=== PATIENT | male | born 1995 | race African-American/Black ===

== ENCOUNTER 2016-07-16 06:02 | Emergency (ER) | payer OTHER ==
[2016-07-16 06:19] VITALS: TEMP 98.1; BMI 17.7
[2016-07-16] MEDS ORDERED: ALBUTEROL SO4 2.5/IPRATROPIUM 0.5 INH SOL 3 ML VIAL.NEB. NEB STA ×2 (06:25→06:27)
[2016-07-16] MEDS ORDERED: guaiFENesin/CODEINE 10 ML UNIT-DOSE CUPS PO ONE (06:26)
--- NOTE | 2016-07-16 06:27 | PDOC ---
History of Present Illness - General History Source: Patient <Camilo Castaneda - Last Filed: 07/16/16 07:01> - General History Source: Patient Exam Limitations: No Limitations - History of Present Illness Initial Comments: 07/16/16 07:04 The patient is a 21 year old male with no significant past medical history who presents to the ED with 3 days of cold-like symptoms. Patient reports he developed a dry cough over the past 3 days that exacerbated yesterday evening and last night, which prevented him from sleeping. Endorses chest burning upon coughing. He also has complaints of chest congestion, rhinorrhea, sore throat, subjective fever, and headache. Patient took santos seltzer with some improvement and advil yesterday morning with some improvement. The patient denies chills, diaphoresis, SOB, chest pain, and palpitations. The patient denies abdominal pain, nausea, vomiting, and diarrhea. Allergies: penicillin, amoxicillin Social History: No alcohol, tobacco, or drug use reported. Past Surgical History: None reported PCP: Dr. Eveline Beltre <Opal Nichols - Last Filed: 07/16/16 07:04> - General Chief Complaint: Shortness of Breath Stated Complaint: DIFFICULTY BREATHING/SWALLOWING Time Seen by Provider: 07/16/16 06:13 Past History - Psycho/Social/Smoking Cessation Hx Anxiety: No Suicidal Ideation: No Smoking Status: No Smoking History: Never smoked Have you smoked in the past 12 months: No Number of Cigarettes Smoked Daily: 0 Information on smoking cessation initiated: No Hx Alcohol Use: No Drug/Substance Use Hx: No Substance Use Type: None <TonyaCamilo - Last Filed: 07/16/16 07:01> <Opal Nichols - Last Filed: 07/16/16 07:04> - Past Medical History Allergies/Adverse Reactions: Allergies Allergy/AdvReac Type Severity Reaction Status Date / Time Penicillins Allergy Mild Swelling Verified 07/16/16 06:18 amoxicillin Allergy Verified 07/16/16 06:18 Home Medications: Ambulatory Orders No Home Medications 0 dose .ROUTE UTDICT 05/07/13 Ibuprofen [Motrin] 600 mg PO TID #30 tablet 07/16/16 Oseltamivir Phosphate [Tamiflu -] 75 mg PO BID #10 capsule 07/16/16 Pseudoephedrine HCl [Sudafed] 30 mg PO Q6H #30 tablet 07/16/16 Review of Systems - Review of Systems Able to Perform ROS?: Yes Comments:: 07/16/16 07:04 CONSTITUTIONAL: +subjective fever Absent: no chills, no fatigue EYES: Absent: visual changes ENT: +sore throat, rhinorrhea Absent: ear pain CARDIOVASCULAR: Absent: chest pain, no palpitations RESPIRATORY: +cough, chest congestion Absent: no SOB GI: Absent: abdominal pain, no nausea, no vomiting, no constipation, no diarrhea GENITOURINARY: Absent: dysuria, no frequency, no hematuria MUSKULOSKELETAL: Absent: back pain, no arthralgia, no myalgia SKIN: Absent: rash NEURO: +headache <Opal Nichols - Last Filed: 07/16/16 07:04> *Physical Exam - Vital Signs Last Vital Signs Temp Pulse Resp BP Pulse Ox 98.1 F 89 20 118/84 100 07/16/16 06:18 07/16/16 06:18 07/16/16 06:18 07/16/16 06:18 07/16/16 06:18 <Camilo Castaneda - Last Filed: 07/16/16 07:01> - Vital Signs Last Vital Signs Temp Pulse Resp BP Pulse Ox 98.1 F 89 20 118/84 100 07/16/16 06:18 07/16/16 06:18 07/16/16 06:18 07/16/16 06:18 07/16/16 06:18 - Physical Exam Comments: 07/16/16 07:04 GENERAL: Well-appearing, well-nourished. No apparent distress. HEENT: Normocephalic, atraumatic. PERRL, EOM intact. Maxillary sinus tenderness. Post nasal drip. Erythematous nasal turbinate bilaterally. Tender lymphadenopathy anterior cervical chain. Cobblestoning. CARDIOVASCULAR: Normal S1, S2. Regular rate and rhythm. PULMONARY: Clear to auscultation bilaterally. ABDOMEN: Soft, non-distended, non-tender. EXTREMITIES: Normal ROM in all four extremities. No gross deformities. SKIN: Warm, dry. No rash NEUROLOGICAL: No focal neurological deficits. <Opal Nichols - Last Filed: 07/16/16 07:04> ED Treatment Course - ADDITIONAL ORDERS Additional order review: 07/16/16 06:31 Influenza Types A,B Antigen (KANDIS) - Final Nasopharyngeal Swab - Final - Medications Given in the ED: ED Medications Discontinued Medications Generic Name Dose Route Start Last Admin Trade Name Vidya PRN Reason Stop Dose Admin Albuterol/Ipratropium 1 amp 07/16/16 06:25 07/16/16 06:58 Duoneb - NEB 07/16/16 06:26 1 amp ONCE STA Administration Albuterol/Ipratropium 1 amp 07/16/16 06:27 07/16/16 06:58 Duoneb - NEB 07/16/16 06:28 1 amp ONCE STA Administration Guaifenesin/Codeine Phosphate 10 ml 07/16/16 06:26 07/16/16 06:32 Robitussin Ac - PO 07/16/16 06:27 10 ml ONCE ONE Administration <Opal Nichols - Last Filed: 07/16/16 07:04> Medical Decision Making - Medical Decision Making 07/16/16 07:01 Dr. Castaneda: The scribe's documentation has been prepared under my direction and personally reviewed by me in its entirery. I confirm that the note above accurately reflects all work, treatment, procedures, and medical decision making performed by me. <Camilo Castaneda - Last Filed: 07/16/16 07:01> *DC/Admit/Observation/Transfer - Discharge Dispostion Admit: No <Camilo Castaneda - Last Filed: 07/16/16 07:01> - Attestations Scribe Attestion: 07/16/16 07:04 Documentation prepared by Opal Nichols, acting as medical support assistant for Camilo Castaneda MD <Opal Nichols - Last Filed: 07/16/16 07:04> Diagnosis at time of Disposition: Influenza A - Discharge Dispostion Disposition: HOME Condition at time of disposition: Stable - Prescriptions Prescriptions: Ibuprofen [Motrin] 600 mg PO TID #30 tablet Pseudoephedrine HCl [Sudafed] 30 mg PO Q6H #30 tablet Oseltamivir Phosphate [Tamiflu -] 75 mg PO BID #10 capsule - Referrals Referrals: Tirni Beltre [Primary Care Provider] - - Patient Instructions Printed Discharge Instructions: DI for Influenza -- Adult
[2016-07-16] MEDS ORDERED: guaiFENesin/CODEINE 5 ML UNIT-DOSE CUPS PO ONE (06:28)
[2016-07-16] MEDS ORDERED: PSEUDOEPHEDRINE HCL 30 MG TABLET PO STA (06:58)
[2016-07-16] MEDS ORDERED: OSELTAMIVIR PHOSPHATE 75 MG CAPSULE PO ONE (06:58)
[2016-07-16] MEDS ORDERED: OSELTAMIVIR PHOSPHATE 75 MG CAPSULE ONE (07:02)
[2016-07-16 08:27] VITALS: BP 122/64; PULSE 87
== END 2016-07-16 08:30 | disposition home or self-care (01) ==
LOC: JER 06:02
PROC: 3E0F7GC Introduction of Other Therapeutic Substance into Respiratory Tract, Via Natural or Artificial Opening (ICD-10-PCS; principal; 2016-07-16)
DX: J09.X2 Influenza due to identified novel influenza A virus with other respiratory manifestations (principal)
CPT/HCPCS: 71020-TC; 87804; 99282-25

== ENCOUNTER 2017-01-06 14:45 | Emergency (ER) | payer OTHER ==
[2017-01-06 14:50] VITALS: BP 122/68; PULSE 69; TEMP 98; BMI 18.7
--- NOTE | 2017-01-06 15:04 | PDOC ---
History of Present Illness - General Chief Complaint: Injury Stated Complaint: LT FOOT PAIN, SWOLLEN Time Seen by Provider: 01/06/17 15:02 History Source: Patient Exam Limitations: No Limitations - History of Present Illness Initial Comments: 01/06/17 15:04 Eversion injury while playing basketball last night, plaints of pain to the medial aspect of left midfoot. Is ambulatory but states has persistent pain. 01/06/17 15:20 Occurred: reports: yesterday Severity: reports: mild, moderate Pain Location: reports: lower extremity (left foot) Modifying Factors: improves with: cold therapy Loss of Consciousness: no loss of consciousness Associated Symptoms (Fall): denies symptoms Past History - Travel Traveled outside of the country in the last 30 days: No Close contact w/someone who was outside of country & ill: No - Past Medical History Allergies/Adverse Reactions: Allergies Allergy/AdvReac Type Severity Reaction Status Date / Time Penicillins Allergy Mild Swelling Verified 01/06/17 14:50 amoxicillin Allergy Verified 01/06/17 14:50 Home Medications: Ambulatory Orders NK [No Known Home Medication] 01/06/17 Other medical history: NONE - Psycho/Social/Smoking Cessation Hx Anxiety: No Suicidal Ideation: No Smoking Status: No Smoking History: Never smoked Have you smoked in the past 12 months: No Number of Cigarettes Smoked Daily: 0 Hx Alcohol Use: No Drug/Substance Use Hx: No Substance Use Type: None Review of Systems - Review of Systems Able to Perform ROS?: Yes Is the patient limited Gambian proficient: Yes Constitutional: Yes: See HPI. No: Symptoms Reported, Malaise HEENTM: No: Symptoms Reported Musculoskeletal: Yes: Symptoms Reported, See HPI, Muscle Pain, Joint Stiffness. No: Joint Swelling All Other Systems: Reviewed and Negative *Physical Exam - Vital Signs Last Vital Signs Temp Pulse Resp BP Pulse Ox 98.0 F 69 18 122/68 99 01/06/17 14:47 01/06/17 14:47 01/06/17 14:47 01/06/17 14:47 01/06/17 14:47 - Physical Exam General Appearance: Yes: Nourished, Appropriately Dressed, Apparent Distress HEENT: positive: ABDIEL, Normal ENT Inspection, TMs Normal, Pharynx Normal Neck: negative: Tender Musculoskeletal: positive: Normal Inspection Extremity: positive: Normal Range of Motion (normal range of motion but limited to severe flexion secondary to pain at instep. Patient has no swelling, no fifth metatarsal navicular, lateral or medial malleolus or tenderness. Negative squeeze test. Neurovascular To toes) Integumentary: positive: Normal Color, Dry, Warm Neurologic: positive: register of wills II-XII NML intact, Fully Oriented, Alert, Normal Mood/ Affect, Normal Response, Motor Strength / ED Treatment Course - RADIOLOGY Radiology Studies Ordered: Category Date Time Status ANKLE & FOOT-LEFT* [RAD] Stat Radiology 01/06/17 15:03 Ordered Progress Note - Progress Note Progress Note: X-rays negative for fractures or dislocations, will treat with Zaheer wrap and conservative measures. Will follow up with Orth O next week as needed *DC/Admit/Observation/Transfer Diagnosis at time of Disposition: Sprain of foot, left Qualifiers: Encounter type: initial encounter Qualified Code(s): S93.602A - Unspecified sprain of left foot, initial encounter - Discharge Dispostion Disposition: HOME Condition at time of disposition: Stable Admit: No - Patient Instructions Printed Discharge Instructions: DI for Foot Pain Additional Instructions: Rest, ice to area on and off for 15 minutes 4-6 times a day Avoid heavy lifting or exercise until pain and swelling is resolved or until further directed Keep area highly elevated to reduce swelling Use splints/Zaheer wrap as directed Followup with orthopedist in one to 2 days if not improving, if significantly improved may wait one week for followup with orthopedist May use ibuprofen 2-200 mg tablets every 6 hours as needed for pain - Post Discharge Activity Work/School Note: Back to Work
[2017-01-06] MEDS ORDERED: IBUPROFEN 600 MG TABLET (FP) PO ONE (15:18)
== END 2017-01-06 15:51 | disposition home or self-care (01) ==
LOC: JERFT 14:45
DX: S93.602A Unspecified sprain of left foot, initial encounter (principal); X58.XXXA Exposure to other specified factors, initial encounter; Y93.67 Activity, basketball; Y92.310 Basketball court as the place of occurrence of the external cause
CPT/HCPCS: 73610-TC-LT; 73630-TC-LT; 99281-25

== ENCOUNTER 2017-08-14 15:16 | Emergency (ER) | payer OTHER ==
[2017-08-14 15:22] VITALS: BP 125/71; PULSE 63; TEMP 98; BMI 19.2
[2017-08-14] MEDS ORDERED: IBUPROFEN 600 MG TABLET (FP) PO ONE ×2 (16:47→16:49)
--- NOTE | 2017-08-14 16:56 | PDOC ---
History of Present Illness - General Chief Complaint: Injury Stated Complaint: RIGTH ANKLE INJURY Time Seen by Provider: 08/14/17 16:30 History Source: Patient Exam Limitations: No Limitations - History of Present Illness Initial Comments: CHIEF COMPLAINT: 22 y/o male c/o right ankle pain since basketball injury yesterday. HISTORY OF PRESENT ILLNESS: Patient states he was playing basketball last night when he landed on an inverted right ankle. He states he is able to put pressure on it and walk but it is swollen and painful. He denies numbness/ tingling. He has not taken anything for pain. Vital signs on arrival are within normal limits REVIEW OF SYSTEMS: GENERAL/CONSTITUTIONAL: No fever/chills. No weakness. No weight change.. MUSCULOSKELETAL: +right ankle pain and swelling. No neck or back pain. SKIN: No rash or easy bruising. NEUROLOGIC: No headache, vertigo, loss of consciousness, or loss of sensation. PHYSICAL EXAM: VITAL_SIGNS: within normal limits GENERAL_APPEARANCE: alert, cooperative, no obvious discomfort. The patient can ambulate with slightly abnormal gait. MENTAL_STATUS: speech clear, oriented X 3, responds appropriately to questions. NEURO: motor intact and sensory intact in injured extremity. EXTREMITIES: 2+ dorsalis pedis pulse right foot. Swelling to lateral malleolus with TTP of both lateral and medial malleolus of right foot. No obvious deformities or crepitus. Full ROM of right ankle. SKIN: warm, dry, good color. Past History - Past Medical History Allergies/Adverse Reactions: Allergies Allergy/AdvReac Type Severity Reaction Status Date / Time Penicillins Allergy Mild Swelling Verified 08/14/17 15:22 amoxicillin Allergy Verified 08/14/17 15:22 Home Medications: Ambulatory Orders Ibuprofen 600 mg PO Q6H #20 tablet 08/14/17 COPD: No - Suicide/Smoking/Psychosocial Hx Smoking Status: No Smoking History: Never smoked Have you smoked in the past 12 months: No Number of Cigarettes Smoked Daily: 0 Hx Alcohol Use: No Drug/Substance Use Hx: No Substance Use Type: None *Physical Exam - Vital Signs Last Vital Signs Temp Pulse Resp BP Pulse Ox 98 F 63 18 125/71 99 08/14/17 15:19 08/14/17 15:19 08/14/17 15:19 08/14/17 15:19 03/24/18 15:19 Medical Decision Making - Medical Decision Making A/P: 22 y/o male with right ankle sprain. No need for imaging at this time. Will wrap with SAHIL bandage, send rx for ibuprofen and suggest RICE instructions. Patient given referral to orthopedic doctor. Suggested he call if symptoms do not resolve in 1-2 weeks. The patient verbalizes understanding of all instructions, has no further questions and is awaiting discharge. *DC/Admit/Observation/Transfer Diagnosis at time of Disposition: Ankle sprain Qualifiers: Encounter type: initial encounter Involved ligament of ankle: unspecified ligament Laterality: right Qualified Code(s): S93.401A - Sprain of unspecified ligament of right ankle, initial encounter - Discharge Dispostion Disposition: HOME Condition at time of disposition: Good - Referrals Referrals: Trini Beltre [Primary Care Provider] - Vinh Daly MD [Staff Physician] - - Patient Instructions Printed Discharge Instructions: DI for Ankle Sprain, How To Perform RICE (Rest , Ice, Compress, Elevate) Additional Instructions: Discharge Instructions: -You have an ankle sprain -Use SAHIL bandage for comfort -A prescription for ibuprofen has been sent to your pharmacy; please take as prescribed -Follow RICE instructions -FOllow up with Dr. Daly in 2 weeks if no improvement in symptoms -Return to the ER with any worsening or concerning symptoms - Post Discharge Activity
== END 2017-08-14 17:21 | disposition home or self-care (01) ==
LOC: JERFT 15:16
DX: S93.401A Sprain of unspecified ligament of right ankle, initial encounter (principal); X50.1XXA Overexertion from prolonged static or awkward postures, initial encounter; Y93.67 Activity, basketball; Y92.310 Basketball court as the place of occurrence of the external cause; Y99.8 Other external cause status
CPT/HCPCS: 99281-25

== ENCOUNTER 2017-08-20 14:03 | Emergency (ER) | payer OTHER ==
[2017-08-20 14:14] VITALS: BP 132/90; PULSE 66; TEMP 97.8; BMI 19.2
--- NOTE | 2017-08-20 14:15 | PDOC ---
Rapid Medical Evaluation Chief Complaint: Injury Time Seen by Provider: 08/20/17 14:12 Medical Evaluation: Allergies Allergy/AdvReac Type Severity Reaction Status Date / Time Penicillins Allergy Mild Swelling Verified 08/20/17 14:10 amoxicillin Allergy Verified 08/20/17 14:10 08/20/17 14:12 The patient presents with a chief complaint of: R ankle sprain about a week ago. Seen in our department, Did not follow up with ortho. Hurting again. No x- ray last time I have performed a brief in-person evaluation of this patient; Pertinent physical exam findings: ambulatory with cane, in no respiratory distress I have ordered the following: R ankle x-ray The patient will proceed to the ED for further evaluation. Discharge Disposition - Referrals Referrals: Trini Beltre [Primary Care Provider] - - Patient Instructions - Post Discharge Activity
--- NOTE | 2017-08-20 15:43 | PDOC ---
History of Present Illness - General Chief Complaint: Injury Stated Complaint: RT ANKLE SPRAIN Time Seen by Provider: 08/20/17 14:12 History Source: Patient Exam Limitations: No Limitations - History of Present Illness Initial Comments: 08/20/17 15:41 CHIEF COMPLAINT: Inversion injury right ankle HISTORY OF PRESENT ILLNESS: Patient is a 22-year-old male denies any medical history, currently on no medication, no allergies sustained inversion injury while playing basketball pain to right lateral ankle. Denies any other injury or complaint. Occurred: reports: just prior to arrival Severity: Yes: moderate Lower Extremity Pain Location: right: ankle Method of Injury: Yes: twisted Modifying Factors: improves with: None Lower Ext. Injury Location - Specific Injury Location Ankle: right pain Past History - Past Medical History Allergies/Adverse Reactions: Allergies Allergy/AdvReac Type Severity Reaction Status Date / Time Penicillins Allergy Mild Swelling Verified 08/20/17 14:14 amoxicillin Allergy Verified 08/20/17 14:14 Home Medications: Ambulatory Orders Ibuprofen [Motrin -] 600 mg PO QID #20 tablet 08/20/17 COPD: No - Suicide/Smoking/Psychosocial Hx Smoking Status: No Smoking History: Never smoked Have you smoked in the past 12 months: No Number of Cigarettes Smoked Daily: 0 Information on smoking cessation initiated: No Hx Alcohol Use: No Drug/Substance Use Hx: No Substance Use Type: None Review of Systems - Review of Systems Constitutional: No: Symptoms Reported Musculoskeletal: Yes: Joint Pain. No: Joint Swelling, Joint Stiffness Integumentary: No: Symptoms Reported, Bruising, Erythema Neurological: No: Symptoms reported Hematologic/Lymphatic: No: Symptoms Reported All Other Systems: Reviewed and Negative *Physical Exam - Vital Signs Last Vital Signs Temp Pulse Resp BP Pulse Ox 97.8 F 66 18 132/90 100 08/20/17 14:10 08/20/17 14:10 08/20/17 14:10 08/20/17 14:10 08/20/17 14:10 - Physical Exam General Appearance: Yes: Appropriately Dressed. No: Apparent Distress Neck: negative: Tender, Tender lateral, Tender midline Respiratory/Chest: positive: Lungs Clear, Normal Breath Sounds. negative: Respiratory Distress, Accessory Muscle Use Cardiovascular: positive: Regular Rhythm, Regular Rate Musculoskeletal: negative: Decreased Range of Motion Extremity: positive: Normal Capillary Refill, Normal Inspection, Normal Range of Motion (with associated pain). negative: Swelling, Calf Tenderness, Erythema , Inflammation Integumentary: positive: Normal Color, Dry, Swelling (right lateral ankle, minor ). negative: Erythema, Ecchymosis, Bruising Neurologic: positive: Alert, Normal Mood/Affect, Normal Response. negative: Motor Strength 5/5 Procedures - Splinting Splint Location: Right: Ankle Pre-Proc Neuro Vasc Exam: normal Pre-Made Type: aircast Zaheer Bandage: 3" Sling: No Complications: No Medical Decision Making - Medical Decision Making 08/20/17 15:44 A/P: Patient with right ankle injury vision injury. X-ray performed, no acute fracture dislocation. Zaheer wrap and Aircast placed on. Motrin as fever pain, follow-up with orthopedics in one week if pain persists. *DC/Admit/Observation/Transfer Diagnosis at time of Disposition: Ankle sprain Qualifiers: Encounter type: initial encounter Involved ligament of ankle: other ligament Laterality: right Qualified Code(s): S93.491A - Sprain of other ligament of right ankle, initial encounter - Discharge Dispostion Disposition: HOME Condition at time of disposition: Stable Admit: No - Prescriptions Prescriptions: Ibuprofen [Motrin -] 600 mg PO QID #20 tablet - Referrals Referrals: Trini Beltre [Primary Care Provider] - - Patient Instructions Printed Discharge Instructions: DI for Ankle Sprain Additional Instructions: 1. Please return to the emergency department with any redness, swelling, increased pain, or any other concerns. 2. Keep splint on. 3. Please follow up in the office of Dr. Daly within a week if pain persists. 4. No weightbearing 5. Ice and elevate when at rest. 6. Motrin for pain - Post Discharge Activity Forms/Work/School Notes: Back to Work
== END 2017-08-20 15:55 | disposition home or self-care (01) ==
LOC: JERFT 14:03
PROC: 2W3QX1Z Immobilization of Right Lower Leg using Splint (ICD-10-PCS; principal; 2017-08-20)
DX: S93.491A Sprain of other ligament of right ankle, initial encounter (principal); X50.1XXA Overexertion from prolonged static or awkward postures, initial encounter; Y93.67 Activity, basketball; Y92.310 Basketball court as the place of occurrence of the external cause; Y99.8 Other external cause status
CPT/HCPCS: 29515; 73610-TC-RT-FY; 73630-TC-RT-FY; 99281-25

== ENCOUNTER 2018-02-11 21:32 | Emergency (ER) | payer OTHER ==
[2018-02-11 21:36] VITALS: BP 136/68; PULSE 71; TEMP 98; BMI 18.7
--- NOTE | 2018-02-11 22:38 | PDOC ---
History of Present Illness - General Chief Complaint: Pain Stated Complaint: CHEST PAIN Time Seen by Provider: 02/11/18 22:15 History Source: Patient - History of Present Illness Initial Comments: 02/12/18 00:03 23-year-old male complaining of midsternal chest pain 2 hours after taking ginkgo biloba, biotin, serotonin. Patient reports that he has taken this medication in prior days but with no chest pain. She has a past medical history of anxiety reports that this chest pain feels "a lot like my anxiety "denies dizziness, diaphoresis, nausea, vomiting, abdominal pain, headache,urinary symptoms. reports drinking energy drinks denies drinking any energery drink today/. No past medical history 02/12/18 00:06 Past History - Past Medical History Allergies/Adverse Reactions: Allergies Allergy/AdvReac Type Severity Reaction Status Date / Time Penicillins Allergy Mild Swelling Verified 02/11/18 21:36 amoxicillin Allergy Verified 02/11/18 21:36 Home Medications: Ambulatory Orders Ibuprofen [Motrin -] 600 mg PO QID #20 tablet 08/20/17 COPD: No - Suicide/Smoking/Psychosocial Hx Smoking Status: No Smoking History: Never smoked Have you smoked in the past 12 months: No Number of Cigarettes Smoked Daily: 0 Hx Alcohol Use: No Drug/Substance Use Hx: No Substance Use Type: None Review of Systems - Review of Systems Able to Perform ROS?: Yes Is the patient limited Kazakh proficient: No Constitutional: No: Symptoms Reported, See HPI, Chills, Diaphoresis, Fever, Loss of Appetite, Malaise, Night Sweats, Weakness, Weight Stable, Unintentional Wgt. Loss, Unexplained wgt Loss, Other Cardiac (ROS): Yes: Chest Pain. No: Symptoms Reported, See HPI, Edema, Irregular Heart Rate, Lightheadedness, Palpitations, Syncope, Chest Tightness, Other *Physical Exam - Vital Signs Last Vital Signs Temp Pulse Resp BP Pulse Ox 98 F 71 18 136/68 97 02/11/18 21:33 02/11/18 21:33 02/11/18 21:33 02/11/18 21:33 02/11/18 21:33 - Physical Exam General Appearance: Yes: Appropriately Dressed Respiratory/Chest: positive: Lungs Clear, Normal Breath Sounds. negative: Chest Tender Cardiovascular: positive: Regular Rhythm, Regular Rate Gastrointestinal/Abdominal: positive: Normal Bowel Sounds, Soft. negative: Tender Musculoskeletal: positive: Normal Inspection Extremity: positive: Normal Capillary Refill, Normal Inspection, Normal Range of Motion Integumentary: positive: Normal Color, Dry, Warm Neurologic: positive: Fully Oriented, Alert, Normal Mood/Affect Heart Score/ECG Review - History History: Slightly suspicious - Electrocardiogram EKG: Normal - Age Age: </= 45 - ECG Intrepretation Rhythm: Regular Rhythm Comment:: 02/12/18 00:05 sinus rhythm with sinus arrythmia with occasional PVCs: 75 bpm ED Treatment Course - LABORATORY CBC & Chemistry Diagram: 02/11/18 21:50 02/11/18 21:50 Medical Decision Making - Medical Decision Making Chest Pain P: cbc cmp cardiac EKG *DC/Admit/Observation/Transfer Diagnosis at time of Disposition: Chest pain Qualifiers: Chest pain type: unspecified Qualified Code(s): R07.9 - Chest pain, unspecified - Discharge Dispostion Disposition: HOME - Referrals Referrals: Trini Beltre [Primary Care Provider] - Roderick Atwood MD [Staff Physician] - 2 Days - Patient Instructions Printed Discharge Instructions: DI for Chest Pain Additional Instructions: avoid caffeine follow up with your doctor. follow up with a paleologist and your primary care doctor. return to the ER if symptoms worsen. - Post Discharge Activity Forms/Work/School Notes: Back to Work
[2018-02-11 23:29] LABS: BASO % 0.3 % (0-2.0); EOS % 0.3 % (0-4.5); HEMATOCRIT 41.4 % (35.4-49); HEMOGLOBIN 13.5 GM/dL (11.7-16.9); MCH 25.2 pg (25.7-33.7); MCHC 32.6 g/dl (32.0-35.9); MEAN CELL VOLUME 77.3 fl (80-96); MEAN PLT VOLUME 9.3 fl (7.5-11.1); MONO % 4.7 % (3.8-10.2); NEUT % 80.7 % (42.8-82.8); PLATELET COUNT 193 K/MM3 (134-434); RBC 5.35 M/mm3 (4.00-5.60); RDW 14.4 % (11.9-15.9)
[2018-02-12] LABS: ALBUMIN 4.3 g/dl (3.4-5.0); ALK PHOS 75 U/L (45-117); ANION GAP 5 MMOL/L (8-16); BILIRUBIN,TOTAL 1.6 mg/dL (0.2-1); BLOOD UREA NITROGEN 10 mg/dL (7-18); CALCIUM 9.3 mg/dL (8.5-10.1); CHLORIDE 103 mmol/L (98-107); CO2 29 mmol/L (21-32); GLUCOSE,RANDOM 118 mg/dL (74-106); POTASSIUM 4.1 mmol/L (3.5-5.1); SGOT/AST 17 U/L (15-37); SGPT/ALT 18 U/L (13-61); SODIUM 137 mmol/L (136-145); TOT PROT 7.9 g/dl (6.4-8.2)
--- NOTE | 2018-02-12 15:34 | EKG ---
Test Reason : Blood Pressure : / mmHG Vent. Rate : 075 BPM Atrial Rate : 075 BPM P-R Int : 152 ms QRS Dur : 096 ms QT Int : 392 ms P-R-T Axes : 079 071 057 degrees QTc Int : 437 ms SINUS RHYTHM WITH SINUS ARRHYTHMIA WITH OCCASIONAL PREMATURE VENTRICULAR COMPLEXES OTHERWISE NORMAL ECG WHEN COMPARED WITH ECG OF 07-MAY-2013 21:59, PREMATURE VENTRICULAR COMPLEXES ARE NOW PRESENT NONSPECIFIC T WAVE ABNORMALITY NO LONGER EVIDENT IN ANTERIOR LEADS Confirmed by MD Jordin, Rocky ([id number]) on 02/12/2018 3:33:51 PM Referred By: Confirmed By:Rocky Brenner MD
== END 2018-02-12 00:30 | disposition home or self-care (01) ==
LOC: JERFT 21:32 → JER 21:32
DX: R07.9 Chest pain, unspecified (principal); F41.9 Anxiety disorder, unspecified; Z88.0 Allergy status to penicillin
CPT/HCPCS: 36415; 71046-TC-FY; 80053; 84443; 84484; 85025; 93005; 93010; 99281-25

== ENCOUNTER 2018-06-24 01:44 | Emergency (ER) | payer OTHER ==
[2018-06-24] MEDS ORDERED: ACETAMINOPHEN 325 MG TABLET (FP) PO ONE (02:13)
[2018-06-24] MEDS ORDERED: MAG HYDROX/AL HYDROX/SIMETH 30 ML UNIT-DOSE CUP PO ONE (02:13)
[2018-06-24] MEDS ORDERED: ACETAMINOPHEN 325 MG TABLET (FP) ONE (02:19)
[2018-06-24] MEDS ORDERED: MAG HYDROX/AL HYDROX/SIMETH 30 ML UNIT-DOSE CUP ONE (02:20)
--- NOTE | 2018-06-24 02:30 | PDOC ---
History of Present Illness - General Chief Complaint: Pain, Acute Stated Complaint: HEADACHE REACTION TO FOOD INTAKE Time Seen by Provider: 06/24/18 02:07 History Source: Patient Exam Limitations: Clinical Condition - History of Present Illness Initial Comments: 06/24/18 02:25 Patient with no signifcant PMhx present with complains of nausea, epigastric discomfort and SANCHEZ after eating crapcakes. Patient report he felt food stuck in the chest after eating it and started to get mild headache with nausea. Denies vomiting, dizziness, blurry vision, change in vision, diarrhea. Denies any other symptoms Timing/Duration: 1 hour Past History - Past Medical History Allergies/Adverse Reactions: Allergies Allergy/AdvReac Type Severity Reaction Status Date / Time Penicillins Allergy Mild Swelling Verified 02/11/18 21:36 amoxicillin Allergy Verified 02/11/18 21:36 Home Medications: Ambulatory Orders Ibuprofen [Motrin -] 600 mg PO QID #20 tablet 08/20/17 Mag Hydrox/Aluminum Hyd/Simeth [Maalox Advanced Suspension] 30 ml PO Q8H PRN # 200 oral.susp 06/24/18 COPD: No - Suicide/Smoking/Psychosocial Hx Smoking Status: No Smoking History: Never smoked Have you smoked in the past 12 months: No Number of Cigarettes Smoked Daily: 0 Hx Alcohol Use: No Drug/Substance Use Hx: No Substance Use Type: None Review of Systems - Review of Systems Able to Perform ROS?: Yes Is the patient limited Maltese proficient: No Constitutional: No: Malaise HEENTM: No: Blurred Vision, Recent change in vision, Throat Pain, Throat Swelling, Difficulty Swallowing, Mouth Swelling Respiratory: No: Shortness of Breath, SOB with Exertion, SOB at Rest, Wheezing Cardiac (ROS): No: Symptoms Reported, See HPI, Chest Pain, Edema, Irregular Heart Rate, Lightheadedness, Palpitations, Syncope, Chest Tightness, Other ABD/GI: Yes: See HPI, Nausea, Abdominal cramping ( mild epigastric). No: Vomiting All Other Systems: Reviewed and Negative *Physical Exam - Physical Exam General Appearance: Yes: Nourished, Appropriately Dressed. No: Apparent Distress HEENT: positive: EOMI, ABDIEL, Normal ENT Inspection, Normal Voice, TMs Normal, Pharynx Normal Neck: positive: Supple Respiratory/Chest: negative: Chest Tender, Lungs Clear, Respiratory Distress, Accessory Muscle Use Cardiovascular: positive: Regular Rhythm, Regular Rate Gastrointestinal/Abdominal: positive: Normal Bowel Sounds, Flat, Soft. negative : Tender, Organomegaly, Pulsatile Mass Musculoskeletal: positive: Normal Inspection Extremity: positive: Normal Capillary Refill, Normal Inspection Integumentary: positive: Normal Color Neurologic: positive: Fully Oriented, Alert, Normal Mood/Affect, Normal Response ED Treatment Course - Medications Given in the ED: ED Medications Discontinued Medications Generic Name Dose Route Start Last Admin Trade Name Vidya PRN Reason Stop Dose Admin Acetaminophen 650 mg 06/24/18 02:13 06/24/18 02:20 Tylenol - PO 06/24/18 02:14 650 mg ONCE ONE Administration Al Hydroxide/Mg Hydroxide 30 ml 06/24/18 02:13 06/24/18 02:21 Mylanta Oral Suspension - PO 06/24/18 02:14 30 ml ONCE ONE Administration Medical Decision Making - Medical Decision Making 06/24/18 02:28 06/24/18 02:25 Patient with no signifcant PMhx present with complains of nausea, epigastric discomfort and SANCHEZ after eating crapcakes. Patient report he felt food stuck in the chest after eating it and started to get mild headache with nausea. Exam unremarkable with no abdominal tenderness on exam. Patient in no acute distress. symptoms likely caused by dyspepsia. Patient given Maalox 30ml PO, tylenol 650mg PO for SANCHEZ and dyspepsia. reassess after 20mins 06/24/18 03:13 Patient report feeling better and stable for discharge *DC/Admit/Observation/Transfer Diagnosis at time of Disposition: Dyspepsia - Discharge Dispostion Disposition: HOME Condition at time of disposition: Stable Decision to Admit order: No - Prescriptions Prescriptions: Mag Hydrox/Aluminum Hyd/Simeth [Maalox Advanced Suspension] 30 ml PO Q8H PRN # 200 oral.susp PRN Reason: abdominal discomfort - Referrals Referrals: ON STAFF,NOT [Primary Care Provider] - Devonte Leon MD [Staff Physician] - - Patient Instructions Printed Discharge Instructions: DI for Dyspepsia Additional Instructions: take medication as prescribed. increase fluid intake. follow-up with referred GI if symptoms persists - Post Discharge Activity
--- NOTE | 2018-06-24 03:01 | PDOC ---
ED Treatment Course - Medications Given in the ED: ED Medications Discontinued Medications Generic Name Dose Route Start Last Admin Trade Name Vidalq PRN Reason Stop Dose Admin Acetaminophen 650 mg 06/24/18 02:13 06/24/18 02:20 Tylenol - PO 06/24/18 02:14 650 mg ONCE ONE Administration Al Hydroxide/Mg Hydroxide 30 ml 06/24/18 02:13 06/24/18 02:21 Mylanta Oral Suspension - PO 06/24/18 02:14 30 ml ONCE ONE Administration Medical Decision Making - Medical Decision Making 06/24/18 03:00 Case discussed with PA Agree with assessment and plan *DC/Admit/Observation/Transfer Diagnosis at time of Disposition: Dyspepsia - Discharge Dispostion Disposition: HOME Condition at time of disposition: Stable - Prescriptions Prescriptions: Mag Hydrox/Aluminum Hyd/Simeth [Maalox Advanced Suspension] 30 ml PO Q8H PRN # 200 oral.susp PRN Reason: abdominal discomfort - Referrals Referrals: ON STAFF,NOT [Primary Care Provider] - Devonte Leon MD [Staff Physician] - - Patient Instructions Printed Discharge Instructions: DI for Dyspepsia Additional Instructions: take medication as prescribed. increase fluid intake. follow-up with referred GI if symptoms persists - Post Discharge Activity
[2018-06-24 03:21] VITALS: BP 112/67; PULSE 80; TEMP 98.3; BMI 28.3
== END 2018-06-24 03:24 | disposition home or self-care (01) ==
LOC: JER 01:44
DX: R10.13 Epigastric pain (principal)
CPT/HCPCS: 99283-25

== ENCOUNTER 2019-02-11 05:43 | Emergency (ER) | payer OTHER ==
[2019-02-11] MEDS ORDERED: ONDANSETRON 4 MG/2 ML VIAL IVPUSH ONE (05:52)
[2019-02-11] MEDS ORDERED: SODIUM CHLORIDE 1,000 ML IV STA (05:52)
[2019-02-11] MEDS ORDERED: FAMOTIDINE 20 MG/50 ML IVPB 20 MG/50 ML MG IVPB ONE ×2 (05:52→06:22)
[2019-02-11] MEDS ORDERED: ACETAMINOPHEN 1000 MG/100 ML VIAL (NON FORMULARY) IVPB ONE (05:52)
--- NOTE | 2019-02-11 05:52 | PDOC ---
History of Present Illness - General Chief Complaint: Pain, Acute Stated Complaint: ABDOMINAL PAIN Time Seen by Provider: 02/11/19 05:49 - History of Present Illness Initial Comments: 02/11/19 06:06 The patient is a 24 year old male with no significant PMH who presents for evaluation of abdominal pain, headache, and nasal congestion. The patient reports a 3 day history of nasal congestion and headache. He noted epigastric abdominal pain this morning prompting his presentation to the ED for further evaluation. He states that he was recently visiting family in [place] and noted that his family members there had "a cold". He states that his epigastric abdominal pain feels like a bloating sensation with some associated nausea. He otherwise denies fevers, chills, chest pain, vomiting, or changes with urination or bowel movements. Past History - Past Medical History Allergies/Adverse Reactions: Allergies Allergy/AdvReac Type Severity Reaction Status Date / Time Penicillins Allergy Mild Swelling Verified 02/11/19 05:48 amoxicillin Allergy Verified 02/11/19 05:48 Home Medications: Ambulatory Orders Ibuprofen [Motrin -] 600 mg PO QID #20 tablet 08/20/17 Mag Hydrox/Aluminum Hyd/Simeth [Maalox Advanced Suspension] 30 ml PO Q8H PRN # 200 oral.susp 06/24/18 COPD: No - Immunization History Immunization Up to Date: Yes - Suicide/Smoking/Psychosocial Hx Smoking Status: No Smoking History: Never smoked Have you smoked in the past 12 months: No Number of Cigarettes Smoked Daily: 0 Information on smoking cessation initiated: No Hx Alcohol Use: No Drug/Substance Use Hx: No Substance Use Type: None Review of Systems - Review of Systems Comments:: 02/11/19 06:09 Constitutional: No fevers, chills, fatigue, malaise HEENT: Nasal congestion. No Rhinorrhea, visual changes Cardiovascular: No chest pain, syncope, palpitations, lightheadedness Respiratory: No Cough, SOB, Hemoptysis, Gastrointestinal: Abdominal pain, nausea. No Vomiting, Constipation, Diarrhea, Melena Genitourinary: No Dysuria, Frequency, Urgency, Hesitancy, Hematuria, Flank pain Musculoskeletal: No Myalgia, arthralgia Skin: No rashes, itching, bruising, pallor Neurologic: Headache. No Dizziness, Numbness, Weakness, or Tingling Psychiatric: No Hallucinations. No SI or HI *Physical Exam - Vital Signs Last Vital Signs Temp Pulse Resp BP Pulse Ox 98.9 F 60 20 113/64 97 02/11/19 05:48 02/11/19 05:48 02/11/19 05:48 02/11/19 05:48 02/11/19 05:48 - Physical Exam Comments: 02/11/19 06:10 General Appearance: Nourished. No Apparent Distress HEENT: Nasal congestion noted on exam. No Pharyngeal Erythema, Tonsillar Exudate, Tonsillar Erythema Neck: No Cervical Lymphadenopathy Respiratory/Chest: Lungs Clear, Normal Breath Sounds. No Crackles, Rales, Rhonchi, Wheezing Cardiovascular: Regular Rhythm, Regular Rate. No Murmur, Gallops, Rubs Gastrointestinal/Abdominal: Normal Bowel Sounds, Soft. No Guarding, Rebound, Tenderness Musculoskeletal: No CVA Tenderness Extremity: Normal Capillary Refill Integumentary: Normal Color, Dry, Warm Neurologic: Fully Oriented, Alert, Normal Mood/Affect, Normal Response, ED Treatment Course - LABORATORY CBC & Chemistry Diagram: 02/11/19 06:00 02/11/19 06:00 Medical Decision Making - Medical Decision Making 02/11/19 06:10 The patient is a 24 year old male with no significant PMH who presents for evaluation of abdominal pain, headache, and nasal congestion. Differential includes but is not limited to: Gastritis, Viral Syndrome, Pancreatitis, Infectious, Metabolic Derangement. Given the patient's history and physical exam, we will obtain a cbc, cmp, lipase to evaluate further. We will treat with iv fluids, tylenol, pepcid, zofran and continue to monitor and reassess while here in the ED. 02/11/19 06:49 Patient signed out to Dr. Manzanares with the day team pending lab results, reassessment and dispo. *DC/Admit/Observation/Transfer Diagnosis at time of Disposition: Abdominal pain Qualifiers: Abdominal location: unspecified location Qualified Code(s): R10.9 - Unspecified abdominal pain - Referrals - Patient Instructions - Post Discharge Activity
[2019-02-11] MEDS ORDERED: ONDANSETRON 4 MG/2 ML VIAL ONE (06:04)
[2019-02-11 06:10] VITALS: PULSE 60; BMI 19.0
--- NOTE | 2019-02-11 06:25 | PDOC ---
Attending Attestation - Resident Resident Name: Chris Roseel - ED Attending Attestation I have performed the following: I have examined & evaluated the patient, The case was reviewed & discussed with the resident, I agree w/resident's findings & plan - HPI HPI: 02/11/19 06:24 24 yo healthy male with Nauseaq/cough/flulike sx after visiting [place] where he has family and his nieces and nephews are ill with viruses. Pt is afebrile and he looks welll developed and well nourished. - Physicial Exam PE: 02/11/19 07:18 Normal exam. Agree with resident exam. Pt appears well and he is feeling better after a saline bolus. Agree with resident exam - Medical Decision Making 02/11/19 20:08 Pt will be signed out to the day team. They will follow his labs and his xray and continue treatment and reeval of the patient.
[2019-02-11] MEDS ORDERED: PSEUDOEPHEDRINE HCL 60 MG TABLET PO ONE (06:30)
[2019-02-11 07:10] LABS: BASO % 0.3 % (0-2.0); HEMATOCRIT 38.3 % (35.4-49); HEMOGLOBIN 12.8 GM/dL (11.7-16.9); LYMPH % 13.7 % (8-40); MCHC 33.4 g/dl (32.0-35.9); MEAN CELL VOLUME 77.9 fl (80-96); MEAN PLT VOLUME 9.6 fl (7.5-11.1); MONO % 9.5 % (3.8-10.2); NEUT % 75.5 % (42.8-82.8); PLATELET COUNT 178 K/MM3 (134-434); RBC 4.92 M/mm3 (4.00-5.60); RDW 13.9 % (11.9-15.9); WHITE BLOOD COUNT 9.2 K/mm3 (4.0-10.0)
[2019-02-11] MEDS ORDERED: PSEUDOEPHEDRINE HCL 60 MG TABLET ONE (07:24)
--- NOTE | 2019-02-11 07:25 | PDOC ---
*Physical Exam - Vital Signs Last Vital Signs Temp Pulse Resp BP Pulse Ox 98.9 F 60 20 113/64 97 02/11/19 05:48 02/11/19 05:48 02/11/19 05:48 02/11/19 05:48 02/11/19 05:48 ED Treatment Course - LABORATORY CBC & Chemistry Diagram: 02/11/19 06:00 02/11/19 06:00 - Medications Given in the ED: ED Medications Discontinued Medications Generic Name Dose Route Start Last Admin Trade Name Vidya PRN Reason Stop Dose Admin Acetaminophen 1,000 mg 02/11/19 05:52 02/11/19 06:15 Ofirmev Injection - IVPB 02/11/19 05:53 1,000 mg ONCE ONE Administration Famotidine/Sodium Chloride 20 mg in 50 mls @ 100 mls/hr 02/11/19 05:52 06:23 Pepcid 20 Mg Premixed Ivpb - IVPB 02/11/19 06:21 100 mls/hr ONCE ONE Administration Sodium Chloride 1,000 mls @ 1,000 mls/hr 02/11/19 05:52 02/11/19 06:10 Normal Saline - IV 02/11/19 06:51 1,000 mls/hr ASDIR STA Administration Ondansetron HCl 4 mg 02/11/19 05:52 02/11/19 06:17 Zofran Injection IVPUSH 02/11/19 05:53 4 mg ONCE ONE Administration Medical Decision Making - Medical Decision Making 02/11/19 07:24 Patient signed out by Dr. Rose (PGY-3) and Dr. Blair (Attending) @ [phone] 24 y/o male with no significant PMHx presents w/abdominal pain, SANCHEZ, nasal congestion. Basic labs, GI cocktail pending; DDx includes gastritis, viral syndrome, also consider pancreatitis, infectious, less likely acute abdomen given patient's clinical presentation. Patient reassessed @ bedside, states belly pain improved, continues to c/o congestion 02/11/19 08:46 S/p Sudafed + GI cocktail, symptomatically improved Tolerating PO intake Will d/c home with return precautions. I discussed the physical exam findings, ancillary test results and final diagnoses with the patient. I answered all of the patient's questions. The patient was satisfied with the care received and felt comfortable with the discharge plan and treatment plan. The patient agrees to follow up with the primary care physician within 24-72 hours. *DC/Admit/Observation/Transfer Diagnosis at time of Disposition: Abdominal pain Qualifiers: Abdominal location: unspecified location Qualified Code(s): R10.9 - Unspecified abdominal pain - Discharge Dispostion Disposition: HOME Condition at time of disposition: Good Decision to Admit order: No - Referrals Referrals: Loretta Gunter MD [Primary Care Provider] - - Patient Instructions Printed Discharge Instructions: DI for Abdominal Pain-Adult, DI for Nasal Congestion Additional Instructions: Follow up with your primary care doctor in the next 3 days. Your care is not complete until you are evaluated by your primary care doctor. Return to the Emergency Department for any new/worsening/concerning symptoms. - Post Discharge Activity
[2019-02-11 07:52] LABS: BILIRUBIN,TOTAL 1.6 mg/dL (0.2-1); CALCIUM 9.3 mg/dL (8.5-10.1); POTASSIUM 4.1 mmol/L (3.5-5.1); TOT PROT 7.3 g/dl (6.4-8.2)
[2019-02-11 09:01] VITALS: BP 116/71; TEMP 98.6
== END 2019-02-11 09:00 | disposition home or self-care (01) ==
LOC: JER 05:43
PROC: 3E0337Z Introduction of Electrolytic and Water Balance Substance into Peripheral Vein, Percutaneous Approach (ICD-10-PCS; principal; 2019-02-11)
PROC: 3E033GC Introduction of Other Therapeutic Substance into Peripheral Vein, Percutaneous Approach (ICD-10-PCS; 2019-02-11)
PROC: 3E033NZ Introduction of Analgesics, Hypnotics, Sedatives into Peripheral Vein, Percutaneous Approach (ICD-10-PCS; 2019-02-11)
PROC: 3E033GC Introduction of Other Therapeutic Substance into Peripheral Vein, Percutaneous Approach (ICD-10-PCS; 2019-02-11)
DX: R10.9 Unspecified abdominal pain (principal)
CPT/HCPCS: 36415; 80053; 83690; 85025; 96361; 96365; 96375; 99283-25; J0131; J7030

== ENCOUNTER 2021-05-23 05:18 | Emergency (ER) | payer OTHER ==
[2021-05-23 05:49] VITALS: BP 114/62; PULSE 76; TEMP 97.8; BMI 18.8
[2021-05-23] MEDS ORDERED: FAMOTIDINE 20 MG TABLET PO ONE (07:33)
[2021-05-23] MEDS ORDERED: MAG HYDROX/AL HYDROX/SIMETH 30 ML UNIT-DOSE CUP PO ONE (07:33)
[2021-05-23] MEDS ORDERED: ONDANSETRON *ODT* 4 MG TABLET SL ONE (07:33)
[2021-05-23] MEDS ORDERED: ONDANSETRON *ODT* 4 MG TABLET ONE (08:07)
[2021-05-23] MEDS ORDERED: FAMOTIDINE 20 MG TABLET ONE (08:07)
[2021-05-23] MEDS ORDERED: MAG HYDROX/AL HYDROX/SIMETH 30 ML UNIT-DOSE CUP ONE (08:08)
[2021-05-23 09:03] LABS: BASO % 0.2 % (0-2.0); EOS % 0.1 % (0-4.5); HEMATOCRIT 40.3 % (35.4-49); HEMOGLOBIN 13.2 GM/dL (11.7-16.9); LYMPH % 4.5 % (8-40); MCH 25.2 pg (25.7-33.7); MCHC 32.8 g/dl (32.0-35.9); MEAN CELL VOLUME 76.8 fl (80-96); MONO % 10.3 % (3.8-10.2); NEUT % 84.9 % (42.8-82.8); PLATELET COUNT 161 10^3/uL (134-434); RBC 5.25 M/mm3 (4.00-5.60); RDW 13.6 % (11.9-15.9); WHITE BLOOD COUNT 8.5 K/mm3 (4.0-10.0)
[2021-05-23 09:20] LABS: ALBUMIN 4.4 g/dl (3.4-5.0); BLOOD UREA NITROGEN 9.7 mg/dL (7-18); CALCIUM 9.2 mg/dL (8.5-10.1)
[2021-05-23 09:24] LABS: BILIRUBIN,TOTAL 1.4 mg/dL (0.2-1); TOT PROT 7.9 g/dl (6.4-8.2)
== END 2021-05-23 09:58 | disposition home or self-care (01) ==
LOC: JER 05:18
DX: R10.13 Epigastric pain (principal)
CPT/HCPCS: 36415; 80053; 85025; 99283-25; Q0162

== ENCOUNTER 2023-12-26 09:58 | Emergency (ER) | payer OTHER ==
[2023-12-26 10:04] VITALS: BP 105/65; PULSE 91; RESP 18; TEMP 97; BMI 19.8
[2023-12-26] MEDS ORDERED: MAG HYDROX/AL HYDROX/SIMETH 30 ML UNIT-DOSE CUP ONE (11:47)
[2023-12-26] MEDS ORDERED: FAMOTIDINE 20 MG TABLET ONE (11:47)
[2023-12-26] MEDS ORDERED: LIDOCAINE VISCOUS 2% ORAL/TOP 15 ML UNIT-DOSE CUP ONE (11:49)
[2023-12-26] MEDS: MAG HYDROX/AL HYDROX/SIMETH 30 ML UNIT-DOSE CUP PO ONE (11:53)
[2023-12-26] MEDS: FAMOTIDINE 20 MG TABLET PO ONE (11:53)
[2023-12-26] MEDS: LIDOCAINE VISCOUS 2% ORAL/TOP 15 ML UNIT-DOSE CUP MM ONE (11:53)
== END 2023-12-26 12:50 | disposition home or self-care (01) ==
LOC: JER 09:58
DX: K21.9 Gastro-esophageal reflux disease without esophagitis (principal)
CPT/HCPCS: 93005; 93010; 99283-25

== ENCOUNTER 2024-04-14 11:17 | Emergency (ER) | payer OTHER ==
[2024-04-14 11:26] VITALS: PULSE 76; BMI 19.5
[2024-04-14] MEDS ORDERED: ONDANSETRON 4 MG/2 ML VIAL ONE (12:50)
[2024-04-14] MEDS ORDERED: FAMOTIDINE 20 MG/50 ML IVPB 20 MG/50 ML MG IVPB ONE (12:50)
[2024-04-14] MEDS ORDERED: MAG HYDROX/AL HYDROX/SIMETH 30 ML UNIT-DOSE CUP ONE (12:50)
[2024-04-14 12:53] LABS: HEMOGLOBIN 13.8 GM/dL (11.7-16.9); MCH 25.2 pg (25.7-33.7); MCHC 31.4 g/dl (32.0-35.9); MEAN CELL VOLUME 80.4 fl (80-96); MEAN PLT VOLUME 8.9 fl (7.5-11.1); PLATELET COUNT 232 10^3/uL (134-434); RBC 5.47 M/mm3 (4.00-5.60); RDW 14.7 % (11.9-15.9); WHITE BLOOD COUNT 14.3 K/mm3 (4.0-10.0)
[2024-04-14 13:01] LABS: INR 0.99 (0.83-1.09); PROTHROMBIN TIME (PATIENT) 11.4 SEC (9.7-13.0)
[2024-04-14 13:03] LABS: ACTIVATED PTT 32.4 SECONDS (25.2-36.5)
[2024-04-14] MEDS: MAG HYDROX/AL HYDROX/SIMETH 30 ML UNIT-DOSE CUP PO ONE (13:12)
[2024-04-14] MEDS: FAMOTIDINE 20 MG/50 ML IVPB 20 MG/50 ML MG IVPB ONE (13:12)
[2024-04-14] MEDS: ONDANSETRON 4 MG/2 ML VIAL IVPB ONE (13:12)
[2024-04-14 13:16] LABS: POTASSIUM 4.4 mmol/L (3.5-5.1)
[2024-04-14 13:18] LABS: ALBUMIN 4.7 g/dl (3.4-5.0); BLOOD UREA NITROGEN 13.4 mg/dL (7-18); CALCIUM 10.1 mg/dL (8.5-10.1)
[2024-04-14 13:21] LABS: CREATININE 0.9 mg/dL (0.55-1.3)
[2024-04-14 13:23] LABS: BILIRUBIN,TOTAL 1.1 mg/dL (0.2-1); TOT PROT 8.3 g/dl (6.4-8.2)
[2024-04-14] MEDS: LACTATED RINGERS SOLUTION 1000 ML INFUS.BAG IV ONE (13:25)
[2024-04-14 14:34] LABS: ANISOCYTOSIS 0; MACROCYTOSIS 0
[2024-04-14 15:18] LABS: HIV INTERPRETATION NEGATIVE (NEGATIVE)
[2024-04-14 15:54] LABS: BASO % 0.4 % (0-2.0); HEMATOCRIT 38.3 % (35.4-49); HEMOGLOBIN 12.3 GM/dL (11.7-16.9); LYMPH % 7.1 % (8-40); MCH 25.5 pg (25.7-33.7); MCHC 32.2 g/dl (32.0-35.9); MEAN CELL VOLUME 79.2 fl (80-96); MEAN PLT VOLUME 8.2 fl (7.5-11.1); MONO % 3.9 % (3.8-10.2); NEUT % 88.6 % (42.8-82.8); PLATELET COUNT 195 10^3/uL (134-434); RBC 4.83 M/mm3 (4.00-5.60); RDW 14.9 % (11.9-15.9); WHITE BLOOD COUNT 11.6 K/mm3 (4.0-10.0)
[2024-04-14 16:12] VITALS: BP 105/55; RESP 16; TEMP 98.6
== END 2024-04-14 16:46 | disposition home or self-care (01) ==
LOC: JER 11:17
PROC: 3E033GC Introduction of Other Therapeutic Substance into Peripheral Vein, Percutaneous Approach (ICD-10-PCS; principal; 2024-04-14)
PROC: 3E033GC Introduction of Other Therapeutic Substance into Peripheral Vein, Percutaneous Approach (ICD-10-PCS; 2024-04-14)
DX: R11.2 Nausea with vomiting, unspecified (principal); R10.13 Epigastric pain
CPT/HCPCS: 36415; 71046-TC-FY; 80053; 83690; 83735; 85025; 85610; 85730; 86803; 86850; 86900; 86901; 87389; 99284-25